=== PATIENT | female | born 1995 | race Caucasian/White ===

== ENCOUNTER 2024-03-21 10:39 | Day surgery (SDC) | payer OTHER ==
[~2024-03-21] VITALS: Ht 149.9 cm; Wt 89.8 kg
[2024-03-21] MEDS ORDERED: LIDOCAINE 2% 100 MG/5 ML UJET TP ONE (11:39)
[2024-03-21] MEDS ORDERED: fentaNYL citrate 0.05 MG/ML VIAL ONE (11:39)
[2024-03-21] MEDS: fentaNYL citrate 0.05 MG/ML VIAL IVP ONE ×2 (11:55→12:20)
== END 2024-03-21 13:06 | disposition home or self-care (01) ==
LOC: MMU 10:39 → MDS 10:39
PROVIDERS: ATTEND Internal Medicine Gastroenterology
DX: K62.5 Hemorrhage of anus and rectum (principal); K64.1 Second degree hemorrhoids; K57.30 Diverticulosis of large intestine without perforation or abscess without bleeding; Z98.890 Other specified postprocedural states; Z79.899 Other long term (current) drug therapy
CPT/HCPCS: 45398; J3010